=== PATIENT | female | born 1980 | race Caucasian/White ===

== ENCOUNTER 2018-10-24 20:12 | Inpatient (IN) | payer SELFPAY ==
[~2018-10-24 20:12] MED LIST: ISOVUE-370 76%-LOCM 1 ML ONE
--- NOTE | 2018-10-24 20:25 | CT ---
FCT head without contrast: Multiple axial tomograms obtained through the head without IV enhancement. INDICATIONS: Stroke alert. Left-sided weakness. COMPARISON: None FINDINGS: Ventricles have normal size and position. No evidence of intracranial mass, hemorrhage, edema, or infarct. Visualized sinuses and mastoids appear clear. Bony calvarium appears unremarkable. IMPRESSION: No acute finding Findings discussed with ER physician at 8:21 PM
[2018-10-24 20:34] LABS: #Basophils 0.1 thou/uL (0.0-0.2); #Eosinphils 0.1 thou/uL (0.0-0.7); #Lymphocytes 3.9 thou/uL (1.20-3.40); #Monocytes 0.9 thou/uL (0.11-0.59); #Neutrophils 10.5 thou/uL (1.40-6.50); %Basophils 0.6 % (0.0-1.0); %Eosinophils 0.9 % (0.0-10.0); %Lymphocytes 25.2 % (21.0-51.0); %Neutrophils 67.2 % (42.0-75.0); Hemoglobin 16.3 g/dL (12.0-16.0); Mean Corpuscular Hemoglobin 28.8 pg (27.0-31.0); Mean Corpuscular Volume 87.4 fL (78.0-98.0); Mean Platelet Volume 7.1 fL (7.4-10.4); Platelet Count 420 thou/uL (130-400); RBC Distribution Width 13.3 % (11.5-14.5); Red Blood Cell (RBC) Count 5.64 mill/uL (4.20-5.40); White Blood Cell (WBC) Count 15.6 thou/uL (4.8-10.8)
[2018-10-24 20:40] LABS: INR-International Normal Ratio 0.9; PTT 25.7 SEC (22.9-36.1); Prothrombin Time 12.7 SEC (12.0-14.7)
[2018-10-24 20:49] LABS: ALT (SGPT) 16 U/L (8-55); AST (SGOT) 13 U/L (5-34); Albumin 4.5 g/dL (3.5-5.0); Alkaline Phosphatase 103 U/L (40-150); Anion Gap 13 mmol/L (10-20); BUN (Urea Nitrogen) 8 mg/dL (7.0-18.7); Bilirubin, Total 0.3 mg/dL (0.2-1.2); CK (CPK) 55 U/L (29-168); Calc. Creatinine Clearance 0 mL/min (70-130); Calcium 10.3 mg/dL (7.8-10.44); Carbon Dioxide 29 mmol/L (22-29); Chloride 102 mmol/L (98-107); Estimated GFR-MDRD Greater than 90; Globulin 3.2 g/dL (2.4-3.5); Glucose 95 mg/dL (70-105); Protein, Total 7.7 g/dL (6.0-8.3); Sodium 140 mmol/L (136-145)
--- NOTE | 2018-10-24 20:50 | CT ---
CTA HEAD WITH CONTRAST 10/24/18 Multiple axial tomograms obtained through the head following a cerebral angio protocol with multiplan ar reconstructions and 3D postprocessing. INDICATIONS: Stroke alert. Left sided weakness. FINDINGS: The intracranial internal carotid arteries appear patent and symmetric. In one segment of both middle cerebral arteries appear patent and symmetric. M2 and M3 branches appear symmetric. Anterior cerebral arteries are patent and symmetric. Basilar artery is patent. Both posterior cerebral arteries appear patent and symmetric. IMPRESSION: Unremarkable cerebral angio study. CTA NECK: Multiple axial tomograms obtained through the neck following angio protocol with multiplanar reconstr uction and 3D postprocessing. INDICATIONS: Left sided weakness. FINDINGS: No evidence of stenosis at the origin of the arch vessels. Common carotid arteries appear patent and symmetric bilaterally. No stenosis or atherosclerotic dominguez e. Carotid bifurcations are unremarkable bilaterally. No evidence of atherosclerotic change. The extr acranial internal carotid arteries are patent and symmetric. No stenosis. Vertebral arteries are joe nt and symmetric. No soft tissue abnormality. IMPRESSION: Unremarkable CTA neck. POS: KERRY
[2018-10-24] MEDS ORDERED: Aspirin Chewable 81 MG TAB ONE (20:51)
[2018-10-24] MEDS ORDERED: diphenhydrAMINE 50 MG/ML VIAL ONE (21:26)
[2018-10-24] MEDS ORDERED: Metoclopramide HCl 10 MG/2 ML VIAL ONE (21:26)
[2018-10-24] MEDS ORDERED: Enoxaparin Sodium 100 MG/ML SYRINGE ONE (21:27)
[2018-10-24] MEDS: Sodium Chloride 0.9% 1,000 ML IV SCH (23:19)
[2018-10-24] MEDS ORDERED: Acetaminophen/Codeine 30-300mg Tablet PO PRN (23:32)
[2018-10-24 23:40] VITALS: BMI 44.0
[2018-10-25] MEDS: Acetaminophen/Codeine 30-300mg Tablet PO PRN ×3 (00:01→08:26)
[2018-10-25] MEDS ORDERED: hydrALAZINE 20 MG/ML VIAL SLOW IVP PRN (00:04)
[2018-10-25] MEDS ORDERED: Acetaminophen 325 MG TAB PO PRN (00:04)
[2018-10-25] MEDS ORDERED: Ondansetron ODT 4 MG TAB PO PRN (00:04)
[2018-10-25] MEDS ORDERED: Morphine 4 MG/ML VIAL SLOW IVP SCH (05:45)
[2018-10-25 05:58] LABS: Cardiac Risk 3.6 (Less than 4.5)
--- NOTE | 2018-10-25 06:30 | HP ---
PRIMARY CARE DOCTOR: Out-of-town physician. CODE STATUS: Full code. TIME OF EVALUATION: 10:25 p.m. CHIEF COMPLAINT: Left-sided weakness. HISTORY OF PRESENT ILLNESS: This is a 38-year-old female patient with past medical history of reportedly recent TIA, diabetes, hypertension, and high cholesterol, came to the hospital after having an episode of slurred speech, also reported left-sided weakness. The symptoms started around 3:00 p.m. with no clear triggers, no alleviating factors. The symptoms were reported as moderate. For that reason, the patient was transferred here. REVIEW OF SYSTEMS: CONSTITUTIONAL: No fever, chills, or generalized weakness. RESPIRATORY: No cough, sputum production, or shortness of breath. CARDIOVASCULAR: No chest pain or palpitation. GASTROINTESTINAL: No nausea. No vomiting, diarrhea, or abdominal pain. CENTRAL NERVOUS SYSTEM: The patient has a left-sided weakness and slurred speech. GENITOURINARY: No burning on urination. EXTREMITIES: No leg swelling. All other systems were reviewed and negative except for the findings mentioned above. 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 PAST SURGICAL HISTORY: Bone marrow donor, tubal ligation. PSYCHIATRIC HISTORY: No previous psychiatric history except for anxiety. SOCIAL HISTORY: The patient drinks socially. Every day smoker. KNOWN ALLERGIES: To Topamax. REPORTED MEDICATIONS: 1. Ambien. 2. Atenolol. 3. Lisinopril. 4. Hydrochlorothiazide. 5. . 6. Simvastatin. 7. Pantoprazole. 8. Venlafaxine. 9. Aspirin 81. 10. Furosemide. PHYSICAL EXAMINATION: VITAL SIGNS: On presentation, blood pressure 146/91 with heart rate 95, respiratory rate was 18, and the oxygen saturation was 100 on room air. GENERAL APPEARANCE: The patient is obese. Alert and oriented, in no acute distress. HEENT: Eyes; normal conjunctivae. Moist oral mucosa. Anicteric. NECK: No JVD. RESPIRATORY: Bilateral air entry. No rales. No wheezes. Symmetric expansion. CARDIOVASCULAR: Normal rate, regular rhythm. No murmurs. No gallop. No edema. ABDOMEN: Soft. Normal bowel sounds. MUSCULOSKELETAL: Baseline range of motion and strength. No tenderness. SKIN: Warm and intact. No pallor. No rash. No redness. VASCULAR: Peripheral pulses are present. Capillary refill seems to be intact. NEURO: No evidence of any new focal weakness. Baseline speech. Cranial nerves seems to be intact. PSYCH: The patient seems to be anxious. DIAGNOSTIC DATA: EKG was reviewed. The patient has normal sinus rhythm with a rate of 84, MT 132, QRS 86, QT corrected 433. Mitch CT was reviewed. The patient has no acute findings. CT angio of the neck was reviewed. The patient has no evidence of stenosis at the region of the heart vessels. Unremarkable CT. Labs were reviewed. The patient has white count 15.5 with a hemoglobin 16.3, MCV 87.4, and platelet count 420. Coagulation was normal. Sodium 140, potassium 4.0, chloride 102, carbon dioxide 29, anion gap 13, BUN 8, creatinine 0.67, glucose 95, calcium 10.3, and bilirubin 0.3. LFTs are negative. Troponin was negative. ASSESSMENT AND PLAN: The patient is placed in the hospital with following medical problems: 1. Possible transient ischemic attack. The patient also seems to be anxious. She reported that she had a transient ischemic attack a few days ago. We have requested the records from previous admission in psych facility to compare with current clinical pictures and by the history given by the patient, we will not pursue any further workup until Neurology see the patient for further recommendations. There is a possibility for psych disorder neurological dementia, however, this is a diagnosis of exclusion. 2. History of anxiety. Reported medication has been restarted. 3. High cholesterol. Reconcile home medications. Low-cholesterol diet is advised. 4. Deep venous thrombosis prophylaxis. Job ID: [id number]
[2018-10-25] MEDS: Sodium Chloride 0.9% 1,000 ML IV SCH (07:50)
[2018-10-25 08:11] VITALS: TEMP 97.8
[2018-10-25] MEDS ORDERED: Aspirin 325 mg Enteric Coated Tablet PO SCH (09:00)
[2018-10-25] MEDS ORDERED: Enoxaparin Sodium 40 MG/0.4 ML SYRINGE SC SCH (09:00)
[2018-10-25] MEDS ORDERED: Venlafaxine HCl XR 150 MG CAP PO SCH (09:00)
[2018-10-25] MEDS ORDERED: Fioricet 325/50/40 mg Tablet PO PRN (09:20)
[2018-10-25] MEDS ORDERED: Ketorolac Tromethamine 30 MG/ML VIAL IVP SCH (09:45)
[2018-10-25] MEDS ORDERED: ALPRAZolam 0.25 MG TAB PO PRN (09:50)
[2018-10-25 11:50] VITALS: BP 136/65
[2018-10-25] MEDS ORDERED: Valproate Sodium 500 MG in Sodium Chloride 0.9% 100 ML IVPB SCH ×2 (12:15→21:00)
--- NOTE | 2018-10-25 16:36 | CON ---
DATE OF CONSULTATION: 10/25/2018 TELEMEDICINE VISIT WITH TIFFANY EVANS CHIEF COMPLAINT: Headache. HISTORY OF PRESENT ILLNESS: The patient is a 38-year-old lady, who is sitting on her bed and crying stating her head has been hurting for 2 weeks. She has frontal headache with radiation. It is always on the top of her head. She used to get migraine headaches since child was and at this time, she is having severe headache. There is history of nausea, but no vomiting. There is no weakness of extremities or diplopia. She does complain of tingling in the tips of her fingers. PREVIOUS MEDICAL HISTORY: She has hypertension, anxiety, and known migraine headaches. SOCIAL HISTORY: She smokes daily and she does drink alcohol occasionally. She lives by self. Son comes home every other weekend, he is 15. FAMILY HISTORY: There is no family history of migraines. Brother had leukemia. Mother in 2013 from breast cancer. Father is 67 or 68 and he has coronary artery disease. He underwent a coronary artery bypass graft. PAST SURGICAL HISTORY: Tubal ligation and she was a bone marrow donor for her brother. REVIEW OF SYSTEMS: PULMONARY: Negative for shortness of breath or cough. GI: Negative for nausea, vomiting, or diarrhea. OPHTHALMOLOGIC: Negative for blurred vision or loss of vision. DERMATOLOGIC: Negative for any skin changes. HEMATOLOGIC: Negative for anemia or bleeding diathesis. NEUROLOGIC: Positive for severe headache, rated as grade 9/10. PSYCHIATRIC: Positive for anxiety. CURRENT MEDICATIONS: She is not on any migraine prophylaxis at home and she is received Toradol and is on Fioricet. LABORATORY WORKUP: White count 15.6, hemoglobin 16.3, hematocrit 49.3, platelet count 420. Chemistry; sodium 140, potassium 4, chloride 102, bicarb 29, BUN 8, creatinine 0.67, and glucose is 95. Her CT of the head was negative for any acute process. CT angiography was also normal. She recently had an MRI about 2 weeks ago and we are waiting for that report to arrive. PHYSICAL EXAMINATION: VITAL SIGNS: Blood pressure 117/64, temperature 97.8, pulse 73, respiratory rate 16, and O2 sats 99%. GENERAL APPEARANCE: The patient appears very anxious and she is crying, complaining of headache. CHEST: Clear vesicular breathing. CARDIOVASCULAR: S1 and S2 heard. No murmurs. ABDOMEN: Soft. NEUROLOGIC: Higher intellectual functions. Normal orientation to time, place, and person. Cranial nerves; pupils 3 mm, reactive to light. Normal extraocular movements. Normal sensation of face bilaterally. Normal strength of facial muscles bilaterally. Normal hearing to finger rub bilaterally. Tongue midline. No atrophy noted. Normal elevation of palate. Motor; bulk, normal and tone, normal. Strength 5/5 in upper and lower extremities and measured in the psoas, hamstrings, quadriceps, ankle dorsiflexion, plantar flexion, deltoid, biceps, triceps, wrist extension and flexion, finger extension and flexion bilaterally. Deep tendon reflexes were 2+ throughout. Sensory, normal to touch bilaterally. Cerebellar examination is normal [id number] and [id number]. IMPRESSION: The patient is a 38-year-old lady with known migraine headaches. She presents with a 2-week history of headache and according to ER note, she was also noted and reporting some weakness. She did not report that to me unless asked and then she says she has been weak for 2 weeks. Her neurological examination is normal. She is currently pending review of her MRI. She has known migraine prophylaxis on her med list. RECOMMENDATIONS: Please start her on Depakote 500 mg b.i.d. and I have already ordered Depacon infusion 500 mg b.i.d. and she can have Xanax as needed to reduce anxiety level maybe that will help with headache. I will review her MRI. If MRI is normal and headache free, she could go home tomorrow from a neuro standpoint. Please call Neurology if you have any further questions. Job ID: [id number] [facility]
[2018-10-25] MEDS ORDERED: Simvastatin 20 MG TAB PO SCH (21:00)
--- NOTE | 2018-10-26 08:27 | DIS ---
DATE OF ADMISSION: 10/24/2018 DATE OF DISCHARGE: 10/25/2018 PRIMARY CARE PROVIDER: Unknown. The patient left against medical advice on October 25, 2018. HOSPITAL COURSE: Ms. Benitez is a 38-year-old lady, who was admitted to [facility] on October 24, 2018 for a left-sided weakness. Please refer to Dr. Jessica's history and physical note, dated October 25, 2018, for further details. Neurology Service was consulted. The patient left the hospital against medical advice on the morning of October 25, 2018. Job ID: [id number]
== END 2018-10-25 12:34 | disposition left against medical advice (07) | DRG 69 ==
LOC: ERS 20:12 → 2SE 20:58
PROVIDERS: ADMIT Hospitalist; ATTEND Hospitalist
DX: G45.9 Transient cerebral ischemic attack, unspecified (principal); I10 Essential (primary) hypertension; E11.9 Type 2 diabetes mellitus without complications; E78.00 Pure hypercholesterolemia, unspecified; F41.9 Anxiety disorder, unspecified; F17.210 Nicotine dependence, cigarettes, uncomplicated; N28.89 Other specified disorders of kidney and ureter; G43.909 Migraine, unspecified, not intractable, without status migrainosus; Z53.21 Procedure and treatment not carried out due to patient leaving prior to being seen by health care provider; Z88.8 Allergy status to other drugs, medicaments and biological substances; Z79.82 Long term (current) use of aspirin; Z79.899 Other long term (current) drug therapy; Z79.84 Long term (current) use of oral hypoglycemic drugs; Z98.51 Tubal ligation status
CPT/HCPCS: 36415; 36416; 70450; 70496; 70498; 80053; 80061; 82550; 84484; 85025; 85610; 85730; 93005; 96361; 96365; 96375; J1200; J1650; J1885; J2270; J2765; J7050; Q9966